=== PATIENT | female | born 1980 | race Caucasian/White ===

== ENCOUNTER 2017-05-03 13:23 | Emergency (ER) | payer MEDICAID ==
[~2017-05-03] VITALS: Ht 157.5 cm; Wt 73.0 kg
[2017-05-03 16:29] LABS: BASOPHILS % 0.6 % (0.0-2.0); EOSINOPHILS % 0.6 % (0.0-5.0); HEMOGLOBIN. 10.5 g/dL (12.0-16.0); LYMPHOCYTES % 38.3 % (20.0-50.0); MEAN CORPUSCULAR HEMOGLOBIN 31.2 pg (28.0-32.0); MEAN CORPUSCULAR VOLUME 92.4 fL (81.0-99.0); MEAN PLATELET VOLUME 7.1 fl (7.4-10.4); MONOCYTES % 9.5 % (2.0-8.0); PLATELET 228 x1000/uL (130-400); RED BLOOD CELL COUNT 3.36 mill/uL (4.2-5.4); RED CELL DISTRIBUTION WIDTH 13.9 % (11.6-14.6)
[2017-05-03 16:41] LABS: CARBON DIOXIDE 23 mEq/L (21-32); CHLORIDE 105 mEq/L (98-107)
[2017-05-03 16:45] LABS: TROPONIN I < 0.02 ng/mL (0.00-0.04)
[2017-05-03] MEDS ORDERED: ACETAMINOPHEN 325MG TABLET PO ONE (17:00)
[2017-05-03 17:25] VITALS: BP 108/53
== END 2017-05-03 17:47 | disposition home or self-care (01) ==
LOC: ER 15:19
DX: O26.892 Other specified pregnancy related conditions, second trimester (principal); O99.012 Anemia complicating pregnancy, second trimester; R07.89 Other chest pain; D64.9 Anemia, unspecified; O24.419 Gestational diabetes mellitus in pregnancy, unspecified control; F41.9 Anxiety disorder, unspecified; Z3A.27 27 weeks gestation of pregnancy
CPT/HCPCS: 36415; 80053; 84484; 85025; 93005; 93970; 99285